=== PATIENT | male | born 1980 | race Caucasian/White ===

== ENCOUNTER 2017-01-13 13:30 | Emergency (ER) | payer OTHER ==
[~2017-01-13] VITALS: Wt 105.0 kg
[2017-01-13] MEDS ORDERED: traMADol 50 MG TAB PO STA (14:41)
[2017-01-13] MEDS ORDERED: KETOROLAC 30 MG INJ IM STA (14:41)
[2017-01-13] MEDS ORDERED: TRAM50TA2 PO (14:43)
--- NOTE | 2017-01-13 14:53 | ERD ---
ER Documentation Chief Complaint Date/Time DATE: 01/13/17 TIME: 14:50 Chief Complaint CHRONIC BACK PAIN HPI This is a 36-year-old male presenting to the emergency department with a history of chronic back pain in the lumbar region for the past 7 years. Patient states that the pain has been constant 8 out of 10. Patient states that he has been seen at [facility] for epidural shots that he received on January 01, 2017, patient states that he still has pain. Patient states that he followed up with the clinic again and they have given him a couple days worth of [place]. Patient states that he has been taking ibuprofen his last dose was greater than 6 hours. Patient states that he will follow-up with his primary care physician. He denies any saddle anesthesia, bladder or bowel incontinence peer. Patient states that he has received imaging in the past ROS All systems reviewed and are negative except as per history of present illness. Medications Home Meds Active Scripts Tramadol HCl (Tramadol HCl) 50 Mg Tablet, 50 MG PO Q4 Y for PAIN for 5 Days, TAB Prov:JATINDER GOODMAN PA-C 01/13/17 Physical Exam Vitals Vital Signs Date Time Temp Pulse Resp B/P Pulse Ox O2 Delivery O2 Flow Rate FiO2 01/13/17 13:43 98.0 82 18 146/96 97 Physical Exam GENERAL: WD/WN, in no apparent distress, non-toxic appearing HENT: NC/AT EYES: Conjunctiva normal NECK: Supple PULM: Normal labored breathing CV: Good capillary refill GI: Non-distended, no guarding BACK: no deformities noted, normal spinal curvature, TTP on lumbar region, tender on lumbar spine midline EXT: No clubbing, cyanosis, or edema NEURO: Moves on all fours, sensation intact, normal gait SKIN: intact PSYCH: Normal mood Results 24 hrs Current Medications Medications (Trade) Dose Ordered Sig/Veronica Route PRN Reason Start Time Stop Time Status Last Admin Dose Admin Ketorolac Tromethamine (Toradol) 30 mg ONCE STAT IM 01/13/17 14:41 01/13/17 14:43 DC Tramadol HCl (Ultram) 50 mg ONCE STAT PO 01/13/17 14:41 01/13/17 14:43 DC Procedures/MDM This is a 36-year-old male presenting to the emergency department with a history of chronic back pain in the lumbar region for the past 7 years. Patient states that he has been seen at [facility] for epidural shots that he received on January 01, 2017 low suspicion for spinal abscess, vertebral fracture, cauda equina syndrome, spinal stenosis due to physical examination. Patient is neurovascularly intact. In the ED patient was given tramadol and Toradol. Prescriptions tramadol for 5 days was given to patient, discussed the follow-up at the same clinic where he received epidural shot, discussed to return to the ED if not improving as expected or follow-up with a primary care physician. Patient understood and agreed with this plan. Departure Diagnosis: Primary Impression: Back pain Condition: Stable Patient Instructions: Back Pain (Acute Or Chronic) Referrals: NO PRIMARY,CARE PHYSICIAN (PCP) Additional Instructions: FOLLOW UP WITH YOUR PRIMARY CARE PHYSICIAN TOMORROW.Return to this facility if you are not improving as expected. Take all medicines as directed. Return to this facility if you are not improving as expected. You have been given a medicine which may cause drowsiness.DO NOT DRIVE OR OPERATE DANGEROUS MACHINERY while taking this medicine! JATINDER GOODMAN PA-C Jan 13, 2017 14:52
== END 2017-01-13 15:20 | disposition home or self-care (01) ==
LOC: FTE 13:30
DX: M54.5 Low back pain (principal)
CPT/HCPCS: 96372; 99284; J1885